=== PATIENT | male | born 1990 | race Hispanic/Latino ===

== ENCOUNTER 2025-03-11 22:37 | Emergency (ER) | payer OTHER, SELFPAY ==
[2025-03-11 22:39] VITALS: BP 123/87
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
[2025-03-12 04:12] VITALS: BP 120/78
[2025-03-12] MEDS: PERCOCET 5/325 1 TABLET PO (04:18)
[2025-03-12] MEDS: DECADRON 10 MG PO (04:18)
[2025-03-12 04:31] VITALS: BP 120/78
== END 2025-03-12 04:33 | disposition home or self-care (01) ==
LOC: EMR 22:37
PROVIDERS: EMERGENCY PHYSICIAN Student in an Organized Health Care Education/Training Program
DX: M54.31 Sciatica, right side (principal); Z59.86 Financial insecurity
CPT/HCPCS: 99283